=== PATIENT | female | born 1995 | race Two or more races ===

== ENCOUNTER → 2019-10-21 | Outpatient (CLI) | payer OTHER | END | disposition home or self-care (01) | LOC: PRENATAL 13:00 | PROVIDERS: ATTEND Obstetrics & Gynecology | DX: O35.0XX1 Maternal care for (suspected) central nervous system malformation in fetus, fetus 1 (principal); O35.3XX1 Maternal care for (suspected) damage to fetus from viral disease in mother, fetus 1 ==

== ENCOUNTER 2019-12-13 17:21 | Emergency (ER) | payer OTHER ==
[~2019-12-13] VITALS: Ht 152.4 cm; Wt 80.3 kg
== END 2019-12-13 21:37 | disposition home or self-care (01) ==
LOC: ER 17:21
DX: O26.893 Other specified pregnancy related conditions, third trimester (principal); R42 Dizziness and giddiness; Z3A.28 28 weeks gestation of pregnancy

== ENCOUNTER 2020-02-26 07:36 | Inpatient (IN) | payer OTHER ==
[~2020-02-26] VITALS: Ht 152.4 cm; Wt 83.5 kg
[2020-02-26] MEDS ORDERED: PRENATAL TABLE1 EAC1 PO (07:53)
== END 2020-02-28 12:27 | disposition home or self-care (01) | DRG 807 ==
LOC: OB/GYN 07:36 → LDR 07:36 → OB/GYN 19:28
PROVIDERS: ADMIT Obstetrics & Gynecology; ATTEND Obstetrics & Gynecology
PROC: 10E0XZZ Delivery of Products of Conception, External Approach (ICD-10-PCS; principal; 2020-02-26)
PROC: 4A1HXFZ Monitoring of Products of Conception, Cardiac Rhythm, External Approach (ICD-10-PCS; 2020-02-26)
PROC: 3E033VJ Introduction of Other Hormone into Peripheral Vein, Percutaneous Approach (ICD-10-PCS; 2020-02-26)
DX: O80 Encounter for full-term uncomplicated delivery (principal); Z37.0 Single live birth; Z3A.39 39 weeks gestation of pregnancy; Z20.828 Contact with and (suspected) exposure to other viral communicable diseases

== ENCOUNTER 2022-01-26 11:06 | Emergency (ER) | payer OTHER ==
[~2022-01-26] VITALS: Ht 152.4 cm; Wt 74.4 kg
[~2022-01-26 11:06] MED LIST: PRENATAL TABLE1 EAC1 PO
[2022-01-26] MEDS ORDERED: PEPCID COMPLET1 EACH PO (16:38)
[2022-01-26] MEDS ORDERED: ONDANSETRON ODT4 MG PO (16:38)
== END 2022-01-26 17:04 ==
LOC: ER 11:06
DX: O21.0 Mild hyperemesis gravidarum (principal); Z3A.01 Less than 8 weeks gestation of pregnancy; K29.70 Gastritis, unspecified, without bleeding

== ENCOUNTER 2022-04-14 14:57 | Outpatient (CLI) | payer OTHER ==
[~2022-04-14 14:57] MED LIST changes: +ONDANSETRON ODT4 MG PO; +PEDIALYTE1000 ML; +PEPCID COMPLET1 EACH PO
== END 2022-04-14 16:44 | disposition home or self-care (01) ==
LOC: PRENATAL 14:57
PROVIDERS: ATTEND Obstetrics & Gynecology Maternal & Fetal Medicine
DX: O35.9XX0 Maternal care for (suspected) fetal abnormality and damage, unspecified, not applicable or unspecified (principal); O35.3XX0 Maternal care for (suspected) damage to fetus from viral disease in mother, not applicable or unspecified; Z3A.20 20 weeks gestation of pregnancy

== ENCOUNTER 2022-05-21 14:11 | Outpatient (CLI) | payer OTHER ==
[2022-05-21] MEDS ORDERED: PRENATAL TABLE1 EAC1 PO (14:47)
== END 2022-05-22 14:01 | disposition home or self-care (01) ==
LOC: OBS/DEL 14:11
PROVIDERS: ATTEND Obstetrics & Gynecology
DX: O26.892 Other specified pregnancy related conditions, second trimester (principal); Z3A.25 25 weeks gestation of pregnancy; R10.2 Pelvic and perineal pain

== ENCOUNTER 2022-06-21 08:03 | Outpatient (CLI) | payer OTHER | END 2022-06-21 22:50 | disposition home or self-care (01) | LOC: OBS/DEL 08:03 | PROVIDERS: ATTEND Obstetrics & Gynecology | DX: O21.8 Other vomiting complicating pregnancy (principal); R19.7 Diarrhea, unspecified; Z3A.26 26 weeks gestation of pregnancy; Z87.19 Personal history of other diseases of the digestive system ==

== ENCOUNTER 2022-07-05 11:45 | Outpatient (CLI) | payer OTHER | END 2022-07-06 14:45 | disposition home or self-care (01) | LOC: OBS/DEL 11:45 | PROVIDERS: ATTEND Obstetrics & Gynecology | DX: O26.893 Other specified pregnancy related conditions, third trimester (principal); V49.9XXA Car occupant (driver) (passenger) injured in unspecified traffic accident, initial encounter; Y93.89 Activity, other specified; Y92.89 Other specified places as the place of occurrence of the external cause; Y99.8 Other external cause status; Z3A.31 31 weeks gestation of pregnancy ==

== ENCOUNTER 2022-08-19 20:17 | Inpatient (IN) | payer OTHER ==
[~2022-08-19] VITALS: Ht 152.4 cm; Wt 77.6 kg
== END 2022-08-23 13:46 | disposition home or self-care (01) | DRG 785 ==
LOC: OBS/DEL 20:17 → LDR 08-20 11:27 → OB/GYN 08-20 11:27
PROVIDERS: ADMIT Obstetrics & Gynecology; ATTEND Obstetrics & Gynecology
PROC: BY4CZZZ Ultrasonography of Second Trimester, Single Fetus (ICD-10-PCS; 2022-08-19)
PROC: 0UB70ZZ Excision of Bilateral Fallopian Tubes, Open Approach (ICD-10-PCS; 2022-08-20)
PROC: 4A1HXCZ Monitoring of Products of Conception, Cardiac Rate, External Approach (ICD-10-PCS; 2022-08-20)
PROC: 10D00Z1 Extraction of Products of Conception, Low, Open Approach (ICD-10-PCS; principal; 2022-08-20 20:00)
DX: O36.8330 Maternal care for abnormalities of the fetal heart rate or rhythm, third trimester, not applicable or unspecified (principal); O26.893 Other specified pregnancy related conditions, third trimester; J10.1 Influenza due to other identified influenza virus with other respiratory manifestations; Z3A.38 38 weeks gestation of pregnancy; Z37.0 Single live birth; Z20.822 Contact with and (suspected) exposure to COVID-19; Z30.2 Encounter for sterilization